=== PATIENT | male | born 1960 | race Caucasian/White ===

== ENCOUNTER 2017-07-15 03:32 | Emergency (ER) | payer OTHER ==
[2017-07-15] MEDS ORDERED: DELTASONE 20 MG PO ONE (04:11)
[2017-07-15] MEDS ORDERED: Augmentin 875-125 Tablet PO ONE (04:12)
[2017-07-15] MEDS ORDERED: DELTASONE 20 MG ONE (04:14)
[2017-07-15] MEDS ORDERED: Augmentin 875-125 Tablet ONE (04:18)
--- NOTE | 2017-07-15 04:18 | ERPHSYRPT ---
- History of Present Illness Time Seen by Provider: 07/15/17 04:05 Source: patient Exam Limitations: no limitations Patient Subjective Stated Complaint: pt states he has increased sinus congestion and cough. Triage Nursing Assessment: pt alert and oriented, answers questions approp. pt ambulatory with steady gait noted. respirations nonllabored with lungs cta. skin pink warm and dry. Physician History: 56 y/o male comes to the ER with complaints of sinus pain, congestion and cough for the past 2 days. Pt states that he had a difficult time sleeping because of the stuffiness. Pt has been using sudafed with no relief. Pt denies any fever, chills, sore throat, shortness of breath, wheezing, or chest congestion. Timing/Duration: gradual onset Severity: moderate ENT Location: facial Prearrival Treatment: no prearrival treatment Modifying Factors: Improves With: nothing Associated Symptoms: cough, nasal congestion/drainage Allergies/Adverse Reactions: Sulfa (Sulfonamide Antibiotics) Allergy (Verified 07/15/17 04:08) tetracycline Allergy (Verified 07/15/17 04:08) Rash Home Medications: Cetirizine HCl [Zyrtec] 10 mg PO DAILY 07/15/17 [History] Hx Tetanus, Diphtheria Vaccination/Date Given: No Hx Influenza Vaccination/Date Given: No Hx Pneumococcal Vaccination/Date Given: No Immunizations Up to Date: No - Review of Systems Constitutional: No Fever, No Chills Eyes: No Symptoms Ears, Nose, & Throat: Nose Congestion, Sinus Drainage Respiratory: Cough, No Dyspnea Cardiac: No Chest Pain, No Edema, No Syncope Abdominal/Gastrointestinal: No Abdominal Pain, No Nausea, No Vomiting, No Diarrhea Genitourinary Symptoms: No Dysuria Musculoskeletal: No Back Pain, No Neck Pain Skin: No Rash Neurological: No Dizziness, No Focal Weakness, No Sensory Changes Psychological: No Symptoms Endocrine: No Symptoms All Other Systems: Reviewed and Negative - Past Medical History Pertinent Past Medical History: Yes Psycho-Social History: Depression Other Medical History: allergies - Past Surgical History Past Surgical History: No - Social History Smoking Status: Current every day smoker How long have you smoked: 9 mos Exposure to second hand smoke: Yes Drug Use: none Patient Lives Alone: Yes - Nursing Vital Signs Nursing Vital Signs: Pain Scale Pain Intensity 0 - Physical Exam General Appearance: no apparent distress, alert Eye Exam: bilateral eye: PERRL, EOMI Nasal Exam: normal inspection, sinus tenderness Throat Exam: pharynx normal, moist mucus membranes, No tonsillar exudate Neck Exam: normal inspection, non-tender, supple Cardiovascular/Respiratory Exam: chest non-tender, normal breath sounds, regular rate/rhythm, heart sounds normal Abdominal Exam: non-tender, soft Neurologic Exam: alert, oriented x 3, sensation nml, No motor deficits Skin Exam: normal color, warm, dry SpO2 Interpretation: normal Oxygen Delivery: Room Air - Course Nursing assessment & vital signs reviewed: Yes Ordered Tests: Medication Summary Generic Name Dose Route Start Last Admin Trade Name Thomasq PRN Reason Stop Dose Admin Prednisone 60 mg 07/15/17 04:11 Deltasone 20 Mg PO 07/15/17 04:12 STAT ONE - Progress Progress: improved Progress Note: 07/15/17 04:16 The patient has acute sinusitis and will be d/c home on prednisone and augmentin. - Departure Time of Disposition: 04:16 Departure Disposition: Home Clinical Impression: Sinusitis Qualifiers: Sinusitis location: unspecified location Chronicity: acute Recurrence: non- recurrent Qualified Code(s): J01.90 - Acute sinusitis, unspecified Condition: Stable Critical Care Time: No Referrals: DOCTOR,NO FAMILY [Primary Care Provider] - Instructions: Sinusitis Additional Instructions: Follow up with your primary care doctor if there is no improvement in your symptoms. Take medications as prescribed. Prescriptions: Amoxicillin/Potassium Clav [Augmentin 875-125 Tablet] 875 mg PO BID #19 tablet Prednisone 20 mg PO DAILY #9 tablet
[2017-07-15 04:38] VITALS: BP 131/83; PULSE 89; O2SAT 97
== END 2017-07-15 04:37 | disposition home or self-care (01) ==
LOC: ED 03:32
DX: J01.90 Acute sinusitis, unspecified (principal)
CPT/HCPCS: 99283; A9270-GY